=== PATIENT | male | born 1935 | race Caucasian/White ===

== ENCOUNTER → 2016-06-19 | Outpatient (CLI) | payer MEDICARE, BC ==
[2015-06-23 15:28] VITALS: BP 111/43
[~2016-06-19] MED LIST: ASPI-482 PO; ASPI81TA2 PO; BARIUM SULFATE 40% (APPLE) 148 GM PWD. PO ONE; BUDE10.2 IH; DOCU100C5 PO; DONE5TAB33 PO; DOXY100C2 PO; FLUO20CA8 PO; LEVE500T56 PO; LEVE500T6 PO; MEGE400O2 PO; MELA3TAB PO; MULT-658 PO; PHEN100C PO; PHEN100C4 PO; PRAV20TA2 PO; SERT25TA PO
--- NOTE | 2016-06-19 15:06 | RAD ---
Videofluoroscopic swallowing examination History: Coughing during meals. Technique: Examination performed in conjunction with speech service. Thin, honey, and pudding consistencies were administered to the patient. Findings: The patient demonstrated poor oral phase which was markedly discoordinated and delayed. Oral phase also demonstrated bolus break. There was also incomplete epiglottic inversion. With thin consistency liquids, the patient demonstrated trace laryngeal penetration, although it is thought that the patient is at risk for subsequent aspiration. With honey and pudding consistencies, the patient demonstrated silent aspiration. Fluoroscopic time was 2.4 minutes. 4 videofluoroscopic series were sent to the PACS system. Impression: 1. Poor oral phase. 2. Silent aspiration with the pudding and honey consistencies. Laryngeal penetration with thin consistencies, but it is thought that patient is at risk for subsequent aspiration. Please see speech service report for more information.
== END | disposition home or self-care (01) ==
LOC: RAD 11:50
DX: R05 Cough (principal); R13.11 Dysphagia, oral phase
CPT/HCPCS: 74230; 92611

== ENCOUNTER 2016-11-06 09:44 | Emergency (ER) | payer MEDICARE, BC ==
[~2016-11-06] VITALS: Ht 165.1 cm; Wt 55.3 kg
[~2016-11-06 09:44] MED LIST changes: +ASPI-630 PO; -ASPI81TA2 PO; -BARIUM SULFATE 40% (APPLE) 148 GM PWD. PO ONE; +DOCU100C28 PO; -DOCU100C5 PO; -DONE5TAB33 PO; +DONE5TAB56 PO; -MELA3TAB PO; +MELA3TAB2 PO
--- NOTE | 2016-11-06 09:59 | PHYS DOC ---
Past Medical History Past Medical History: Constipation, Dementia, Heart Disease, Seizure, UTI Additional Past Medical Histor: anoxic brain injury Past Surgical History: TURP, Other Additional Past Surgical Histo: "colon surgery" Alcohol Use: None Drug Use: None Adult General Chief Complaint Chief Complaint: SYNCOPE HPI HPI Patient is a 80 year old male presents to ED EMS. EMS was coming to the patient 's retirement where his been a resident for 8 months, because patient would not respond. Upon arrival of EMS, patient was sitting in a wheelchair and was not responsive. Medics state that when they moved the patient to the rney he awakened immediately and seemed to be appropriate. Patient's heart rate on arrival was 54. Medics obtained an EKG which revealed a sinus rhythm with a rate in 60s. Upon arrival to the emergency department, the patient is awake and alert. Review of Systems Review of Systems History per postal clerk, patient nonverbal secondary to anoxic brain injury Constitutional: Denies fever or chills [] Eyes: Denies change in visual acuity, redness, or eye pain [] HENT: Denies nasal congestion or sore throat [] Respiratory: Denies cough or shortness of breath [] Cardiovascular: No additional information not addressed in HPI [] GI: Denies abdominal pain, nausea, vomiting, bloody stools or diarrhea [] : Denies dysuria or hematuria [] Musculoskeletal: Denies back pain or joint pain [] Integument: Denies rash or skin lesions [] Neurologic: Syncope, Denies headache, focal weakness or sensory changes [] Endocrine: Denies polyuria or polydipsia [] Current Medications Current Medications Current Medications Medications (Trade) Dose Ordered Sig/Jesus Alberto Start Time Stop Time Status Last Admin Dose Admin Sodium Chloride 500 ml @ 500 mls/hr 1X ONCE 11/06/16 10:00 11/06/16 10:59 DC 11/06/16 10:31 500 MLS/HR Allergies Allergies Allergies Coded Allergies Type Severity Reaction Last Updated Verified No Known Drug Allergies 04/08/13 No Physical Exam Physical Exam Constitutional: Well developed, well nourished, no acute distress, non-toxic appearance. [] HENT: Normocephalic, atraumatic, bilateral external ears normal, oropharynx dry , no oral exudates, nose normal. [] Eyes: PERRLA, EOMI, conjunctiva normal, no discharge. [] Neck: Normal range of motion, no tenderness, supple, no stridor. [] Cardiovascular:Heart rate regular rhythm, no murmur [] Lungs & Thorax: Bilateral breath sounds clear to auscultation [] Abdomen: Bowel sounds normal, soft, no tenderness, no masses, no pulsatile masses. [] Skin: Warm, dry, no erythema, no rash. [] Back: No tenderness, no CVA tenderness. [] Extremities: No tenderness, no cyanosis, no clubbing, ROM intact, no edema. [] Neurologic: Alert, normal motor function, normal sensory function, no focal deficits noted. [] Current Patient Data Vital Signs Vital Signs Date Time Temp Pulse Resp B/P (MAP) Pulse Ox O2 Delivery O2 Flow Rate FiO2 11/06/16 11:16 60 18 118/56 (76) 99 11/06/16 09:45 97.7 Room Air 97.7 Lab Values Laboratory Tests Test 11/06/16 10:24 11/06/16 10:35 Urine Collection Type U cath Urine Color Yellow Urine Clarity Cloudy Urine pH 6.5 Urine Specific [place] 1.015 Urine Protein Negative mg/dL (NEG-TRACE) Urine Glucose (UA) Negative mg/dL (NEG) Urine Ketones (Stick) Negative mg/dL (NEG) Urine Blood Small (NEG) Urine Nitrite Negative (NEG) Urine Bilirubin Negative (NEG) Urine Urobilinogen Dipstick 0.2 mg/dL (0.2 mg/dL) Urine Leukocyte Esterase Large (NEG) Urine RBC Fobs /HPF (0-2) Urine WBC Tntc /HPF (0-4) Urine Renal Epithelial Cells Occ /LPF Urine Bacteria Moderate /HPF (0-FEW) White Blood Count 10.1 x10^3/uL (4.0-11.0) Red Blood Count 4.43 x10^6/uL (4.30-5.70) Hemoglobin 12.9 g/dL (13.0-17.5) L Hematocrit 39.4 % (39.0-53.0) Mean Corpuscular Volume 89 fL (79-100) Mean Corpuscular Hemoglobin 29 pg (25-35) Mean Corpuscular Hemoglobin Concent 33 g/dL (31-37) Red Cell Distribution Width 14.4 % (11.5-14.5) Platelet Count 308 x10^3/uL (140-400) Neutrophils (%) (Auto) 65 % (31-73) Lymphocytes (%) (Auto) 20 % (24-48) L Monocytes (%) (Auto) 11 % (0-9) H Eosinophils (%) (Auto) 5 % (0-3) H Basophils (%) (Auto) 0 % (0-3) Neutrophils # (Auto) 6.5 x10^3uL (1.8-7.7) Lymphocytes # (Auto) 2.0 x10^3/uL (1.0-4.8) Monocytes # (Auto) 1.1 x10^3/uL (0.0-1.1) Eosinophils # (Auto) 0.5 x10^3/uL (0.0-0.7) Basophils # (Auto) 0.0 x10^3/uL (0.0-0.2) Sodium Level 141 mmol/L (136-145) Potassium Level 4.5 mmol/L (3.5-5.1) Chloride Level 102 mmol/L (98-107) Carbon Dioxide Level 31 mmol/L (21-32) Anion Gap 8 (6-14) Blood Urea Nitrogen 32 mg/dL (8-26) H Creatinine 1.8 mg/dL (0.7-1.3) H Estimated GFR (Cockcroft-Gault) 36.6 BUN/Creatinine Ratio 18 (6-20) Glucose Level 140 mg/dL (70-99) H Calcium Level 8.6 mg/dL (8.5-10.1) Total Bilirubin 0.6 mg/dL (0.2-1.0) Aspartate Amino Transferase (AST) 19 U/L (15-37) Alanine Aminotransferase (ALT) 24 U/L (16-63) Alkaline Phosphatase 75 U/L (46-116) Creatine Kinase 143 U/L (39-308) Creatine Kinase MB (Mass) 2.4 ng/mL (0.0-3.6) Creatine Kinase MB Relative Index 1.7 % (0-4) Troponin I Quantitative < 0.017 ng/mL (0.000-0.055) Total Protein 6.9 g/dL (6.4-8.2) Albumin 3.5 g/dL (3.4-5.0) Albumin/Globulin Ratio 1.0 (1.0-1.7) Laboratory Tests 11/06/16 10:35 Laboratory Tests 11/06/16 10:35 EKG EKG EKG done upon arrival, reviewed by Dr. Perez emergency room physician, sinus rhythm without acute changes. 12[] Radiology/Procedures Radiology/Procedures CT head without contrast reviewed by Dr. Hernandez, radiologist. No acute findings. Chronic changes with hydrocephalus similar to previous exam.[] Course & Med Decision Making Course & Med Decision Making Pertinent Labs and Imaging studies reviewed. (See chart for details) Patient received 500 mL of normal saline. He had no difficulty with standing or induration emergency department. Per his son, "my dad does this all the time". Course reviewed with Dr. Ceja. In agreement to discharge patient back to retirement. [] Dragon Disclaimer Dragon Disclaimer This electronic medical record was generated, in whole or in part, using a voice recognition dictation system. Departure Departure Impression: Primary Impression: Urinary tract infection Additional Impression: Mild dehydration Referrals: ELYSIA RUVALCABA MD (PCP) Patient Instructions: Dehydration, Adult, Urinary Tract Infection Scripts Ciprofloxacin Hcl (CIPRO) 500 Mg Tablet 1 TAB PO BID, #14 TAB Prov: ROMELIA PERDUE APRN 11/06/16 Problem Qualifiers Primary Impression: Urinary tract infection Urinary tract infection type: acute cystitis Hematuria presence: without hematuria Qualified Codes: N30.00 - Acute cystitis without hematuria ROMELIA PERDUE APRN Nov 06, 2016 09:59
[2016-11-06] MEDS ORDERED: IV NORMAL SALINE 500ML BAG 500 ML IV ONE (10:00)
[2016-11-06 10:33] LABS: BILIRUBIN,URINE NEGATIVE (NEG); GLUCOSE,URINE NEGATIVE (NEG); NITRITE,URINE NEGATIVE (NEG); PH,URINE 6.5; PROTEIN,URINE NEGATIVE (NEG-TRACE); UROBILINOGEN,URINE 0.2 mg/dL (0.2 mg/dL)
--- NOTE | 2016-11-06 10:39 | RAD ---
Indication syncopal episode. Noncontrast images of the head were obtained and are compared to an examination 06/22/2015. The calvarium appears unremarkable. The visualized paranasal sinuses appear normal. There is no subdural or epidural hematoma. There is unchanged hydrocephalus. There is no mass or midline shift. No hemorrhage is seen. A significant change compared to the previous exam is not seen. IMPRESSION: No acute finding. Chronic changes. Hydrocephalus similar to the previous exam PQRS Compliance Statement: One or more of the following individualized dose reduction techniques were utilized for this examination: 1. Automated exposure control 2. Adjustment of the mA and/or kV according to patient size 3. Use of iterative reconstruction technique
[2016-11-06 10:43] LABS: RBC,URINE FOBS /HPF (0-2); WBC,URINE TNTC /HPF (0-4)
[2016-11-06 10:44] LABS: BACTERIA,URINE MODERATE /HPF (0-FEW)
[2016-11-06 10:54] LABS: BASO % 0 % (0-3); EOS % 5 % (0-3); HEMATOCRIT 39.4 % (39.0-53.0); HEMOGLOBIN 12.9 g/dL (13.0-17.5); LYMPH % 20 % (24-48); MEAN CORPUSCULAR HEMOGLOBIN 29 pg (25-35); MEAN CORPUSCULAR HGB CONC 33 g/dL (31-37); MEAN CORPUSCULAR VOLUME 89 fL (79-100); MONO % 11 % (0-9); NEUT % 65 % (31-73); PLATELET COUNT 308 x10^3/uL (140-400); RED BLOOD COUNT 4.43 x10^6/uL (4.30-5.70); RED CELL DISTRIBUTION WIDTH 14.4 % (11.5-14.5); WHITE BLOOD COUNT 10.1 x10^3/uL (4.0-11.0)
[2016-11-06 11:09] LABS: CALCIUM 8.6 mg/dL (8.5-10.1); CREATININE 1.8 mg/dL (0.7-1.3); GFR 36.6; POTASSIUM 4.5 mmol/L (3.5-5.1)
[2016-11-06 11:15] LABS: ALBUMIN 3.5 g/dL (3.4-5.0); TOTAL BILIRUBIN 0.6 mg/dL (0.2-1.0); TOTAL PROTEIN 6.9 g/dL (6.4-8.2)
[2016-11-06 11:29] LABS: CKMB MASS 2.4 ng/mL (0.0-3.6)
[2016-11-06] MEDS ORDERED: CIPR500T94 PO (11:43)
[2016-11-06 11:44] VITALS: BP 136/63
--- NOTE | 2016-11-07 06:55 | EKG ---
[facility] [address] [place] [id number] Test Date: 2016-11-06 Test Time: 09:50:51 Pat Name: RAGHAVENDRA MCCURDY Department: Room: Gender: Salesforce Specialist: : [id number] Requested By: ROMELIA PERDUE Order Number: [id number] Reading MD: Miguel Bassett Measurements Intervals [place] Rate: 64 P: 23 IN: 178 QRS: 11 QRSD: 92 T: 27 QT: 410 QTc: 427 Interpretive Statements SINUS RHYTHM Electronically Signed On 11-10-2016 11:02:24 CDT by Miguel Bassett
== END 2016-11-06 12:15 | disposition home or self-care (01) ==
LOC: ER 09:44
DX: E86.0 Dehydration (principal); N30.00 Acute cystitis without hematuria; I51.9 Heart disease, unspecified; Z87.440 Personal history of urinary (tract) infections
CPT/HCPCS: 36415; 70450; 80053; 81001; 82553; 84484; 85025; 87086; 87186; 93005; 96360; 99285; J7040